=== PATIENT | female | born 1965 | race Caucasian/White ===

== ENCOUNTER 2020-06-01 13:07 | Observation (INO) ==
[2020-06-01] MEDS ORDERED: Ondansetron 4 MG/2 ML VIAL IVP ONE (13:57)
[2020-06-01] MEDS ORDERED: 0.9 % Sodium Chloride 1,000 ML IVC ONE (13:57)
[2020-06-01] MEDS ORDERED: *HR* HYDROmorphone 2 MG/ML SYRINGE IVP ONE (13:58)
[2020-06-01] MEDS ORDERED: Isovue-370 500 ML BOTTLE IVP ONE (13:59)
[2020-06-01 14:38] LABS: Basophils % 0.4 %; Eosinophils % 0.3 %; Hemoglobin 14.1 g/dL (11.5-15.4); Immature Granulocytes % 0.1 % (0-4); Lymphocytes # 2.3 K/mcL (0.6-4.6); Lymphocytes % 34.5 %; Mean Corpuscular HGB Conc 32.8 g/dL (31.6-35.5); Mean Corpuscular Hemoglobin 29.6 pg (28.0-33.3); Mean Corpuscular Volume 90.1 fL (83.0-100.0); Mean Platelet Volume 10.2 fL (9.4-12.4); Monocytes # 0.4 K/mcL (0.0-1.3); Neutrophils # 3.9 K/mcL (1.6-8.9); Platelet Count 259 K/mcL (140-400); Red Blood Count 4.77 M/mcL (3.82-4.97); Red Cell Distribution Width 15.3 % (11.5-14.5); Segmented Neutrophils % 58.7 %; White Blood Count 6.7 K/mcL (4.3-11.1)
[2020-06-01 15:01] LABS: Alanine Aminotransferase 7 Units/L (7-52); Albumin 4.5 g/dL (3.5-5.7); Albumin/Globulin Ratio 1.4 (1.1-2.2); Alkaline Phosphatase 61 Units/L (34-104); Aspartate Amino Transferase 11 Units/L (13-39); BUN/Creatinine Ratio 32 (6-26); Bilirubin,Total 0.5 mg/dL (0.3-1.0); Blood Urea Nitrogen 17 mg/dL (6-20); Calcium 9.7 mg/dL (8.6-10.3); Carbon Dioxide 23 mEq/L (23-29); Chloride 105 mEq/L (98-107); Globulin 3.2 g/dL (2.4-3.5); Glucose 97 mg/dL (70-105); Lipase 15 Units/L (11-82); Osmolality,Calculated 293 (280-300); Potassium 3.3 mEq/L (3.5-5.1); Sodium 141 mEq/L (136-145); Total Protein 7.7 g/dL (6.4-8.9); Troponin I < 0.03 ng/mL (< 0.04); eGFR For African Americans > 60 (> 60); eGFR For Non-African Americans > 60 (> 60)
[2020-06-01 15:36] LABS: Bacteria,Urine Few per hpf (None-Few); Bilirubin,Urine Negative (Negative); Blood,Urine Small (Negative); Clarity,Urine Turbid (Clear); Color,Urine Yellow (Yellow); Glucose,Urine (UA) Normal (Normal); Ketones,Urine Negative (Negative); Leukocyte Esterase,Urine Trace (Negative); Mucus,Urine Few per lpf (None-Few); Nitrite,Urine Negative (Negative); Protein,Urine 30 mg/dL (Neg-Trace); Specific Gravity,Urine 1.029 (1.010-1.025); Squamous Epithelial Cell,Urine Few per hpf (None-Few); Urobilinogen,Urine Normal (Normal)
[2020-06-01] MEDS ORDERED: Perflutren Lipid Microsphere 1.3 ML in 0.9 % Sodium Chloride 8.7 ML IVP PRN (17:49)
[2020-06-01] MEDS ORDERED: Potassium Chloride 20 MEQ, Lidocaine 1% 2 ML in 0.9 % Sodium Chloride 250 ML IVPB ONE (17:51)
[2020-06-01] MEDS ORDERED: Acetaminophen/Butalbital/CaffeineTABLET PO PRN (17:52)
[2020-06-01] MEDS ORDERED: Naloxone 0.4 MG/ML INJ IVP PRN (17:54)
[2020-06-01] MEDS ORDERED: Acetaminophen 325 MG TABLET PO PRN (17:54)
[2020-06-01] MEDS ORDERED: Prochlorperazine 10 MG/2 ML VIAL IVP PRN (17:56)
[2020-06-01 18:21] LABS: Magnesium 1.9 mg/dL (1.6-2.6)
[2020-06-01] MEDS ORDERED: levoFLOXacin 750 MG/150 ML 750 MG/150 ML BAG IVPB SCH (18:30)
[2020-06-01] MEDS: Nicotine 21 MG PATCH.TD24 TD SCH (18:55)
[2020-06-01] MEDS: Gabapentin 300 MG CAPSULE PO SCH (20:32)
[2020-06-01] MEDS: *HR* Heparin 5,000 UNIT/ML VIAL SQ SCH (22:49)
[2020-06-01] MEDS: Budesonide/Formoterol 160/4.5 1 PUFF INH IH SCH (23:03)
[2020-06-02 02:47] LABS: Hematocrit 39.7 % (35.3-44.9); Mean Corpuscular HGB Conc 32.7 g/dL (31.6-35.5); Mean Corpuscular Hemoglobin 29.8 pg (28.0-33.3); Mean Corpuscular Volume 91.1 fL (83.0-100.0); Mean Platelet Volume 10.2 fL (9.4-12.4); Platelet Count 216 K/mcL (140-400); Red Blood Count 4.36 M/mcL (3.82-4.97); White Blood Count 6.6 K/mcL (4.3-11.1)
[2020-06-02 02:49] LABS: INR 1.2; Prothrombin Time 14.1 Seconds (9.4-12.1)
[2020-06-02 02:52] LABS: Activated Partial Thrombo Time 29.4 Seconds (26.0-36.0)
[2020-06-02 03:06] LABS: BUN/Creatinine Ratio 28 (6-26); Blood Urea Nitrogen 13 mg/dL (6-20); Calcium 8.8 mg/dL (8.6-10.3); Carbon Dioxide 24 mEq/L (23-29); Chloride 106 mEq/L (98-107); Chol/HDL Ratio 4.7 (0-4.9); Cholesterol 213 mg/dL (< 200); Glucose 100 mg/dL (70-105); HDL Cholesterol 45 mg/dL (40-59); LDL Cholesterol,Calculated 118 mg/dL (< 100); Osmolality,Calculated 286 (280-300); Potassium 3.7 mEq/L (3.5-5.1); Sodium 138 mEq/L (136-145); Triglycerides 250 mg/dL (< 150); eGFR For African Americans > 60 (> 60); eGFR For Non-African Americans > 60 (> 60)
[2020-06-02] MEDS: *HR* Heparin 5,000 UNIT/ML VIAL SQ SCH (05:34)
[2020-06-02] MEDS ORDERED: Prochlorperazine 10 MG/2 ML VIAL IVP PRN (06:44)
[2020-06-02 07:06] VITALS: BP 140/87
[2020-06-02] MEDS: Budesonide/Formoterol 160/4.5 1 PUFF INH IH SCH (08:26)
[2020-06-02] MEDS: Nicotine 21 MG PATCH.TD24 TD SCH (08:27)
[2020-06-02] MEDS: Gabapentin 300 MG CAPSULE PO SCH (08:27)
[2020-06-02] MEDS ORDERED: CITALOPRAM HYDROBROMIDE PO SCH (09:00)
[2020-06-02] MEDS ORDERED: Tiotropium 10 INH DOSE IH SCH (09:00)
[2020-06-02] MEDS ORDERED: ALPRAZolam 1 MG TABLET PO PRN (09:58)
[2020-06-02] MEDS ORDERED: Aspirin Enteric Coated 81 MG Tablet PO SCH (11:15)
[2020-06-02] MEDS ORDERED: Gabapentin 400 MG CAPSULE PO SCH (15:00)
[2020-06-02] MEDS ORDERED: Mirtazapine 15 MG TABLET PO SCH (21:00)
== END 2020-06-02 14:37 | disposition home or self-care (01) ==
LOC: EMEROOARM 13:07 → 3BNU 13:07 → SUATTDRO 17:18 → 3BNU 18:22
PROVIDERS: ADMIT Internal Medicine; ATTEND Internal Medicine